=== PATIENT | male | born 1985 | race Asian ===

== ENCOUNTER 2023-09-13 13:40 | Emergency (ER) | payer OTHER, SELFPAY ==
[2023-09-13 14:02] VITALS: BP 159/74; PULSE 74; RESP 16; TEMP 36.6; O2SAT 97; BMI 30.1
--- NOTE | 2023-09-13 14:25 | ED.GENADULT ---
HPI - General Adult General Time Seen by Provider: 14:25 Date Seen: 09/13/23 Chief complaint: Cough Stated complaint: COVID+, whole body numb Time Seen by Provider: 09/13/23 14:25 Source: patient and RN notes reviewed Mode of arrival: ambulatory Limitations: no limitations History of Present Illness HPI narrative: Jovanni is a very pleasant 38-year-old [employer] with history of some ?lung issues[place] who comes to the [facility] for evaluation regarding worsening cough after COVID. Patient had the onset of COVID like symptoms with sore throat cough and fever on September 02. This persisted for a week and he tested positive for COVID on 09/09/2023. He had actually had improvement of his symptoms since that time but his states over the past few days he has had increased coughing and now production. He has a yellow sputum. He notes today he is feeling worse again with some tingling on his body. He occasionally feels short of breath. He has not had any fevers. Patient denies chest pain. No history of DVT in himself her family's and denies any calf tenderness or swelling. Related Data Home Medications Medication Instructions Recorded Confirmed albuterol 90 mcg/actuation aerosol mcg inhalation 09/13/23 inhaler bupropion HCl 75 mg tablet 75 mg PO TID 09/13/23 09/13/23 Allergies Allergy/AdvReac Type Severity Reaction Status Date / Time Sulfa (Sulfonamide Allergy Intermediate Rash Verified 09/13/23 13:58 Antibiotics) Review of Systems Status of ROS: Reports: 10 or more systems reviewed and unremarkable except as noted in History and below Const: Reports: fatigue; Denies: fever or chills Eyes: Denies: change in vision ENMT: Denies: neck pain or throat swelling Cardio: Reports: lightheadedness and shortness of breath with exertion; Denies: chest pain, palpitations, edema or swelling of feet/ankles Resp: Reports: shortness of breath, cough and change in phlegm color; Denies: coughing up blood GI: Denies: abdominal pain, nausea, vomiting or diarrhea Musculo: Denies: neck pain Integ/Breast: Denies: rash Endo: Reports: fatigue Allergy/Immuno: Denies: throat swelling PFSH PFSH Social History Smoking Status: Never smoker Do you use any of these nicotine containing products: None Second hand tobacco smoke exposure: No How often do you have a drink containing alcohol: never How often do you have six or more drinks on one occasion: Never AUDIT-C Alcohol total score: 0 Non-prescribed substance use: denies use service: Yes Exam Narrative: Exam Narrative: Jovanni is alert and oriented. Very pleasant gentleman in no acute distress. External ears eyes nose clear. Oral cavity with moist mucous membranes. Neck is supple without lymphadenopathy. Heart with regular rate and rhythm without additional heart sounds or murmurs. Lungs are with decreased breath sounds in the bases. I do think there are some crackles on the left lower lung field. Abdomen is soft nontender. Calf t without tenderness negative Homans sign and no edema. Const: Vital Signs, click to edit/add: Vital Signs - 24 hr 09/13/23 14:02 Temperature 97.9 F Pulse Rate [Pulse Oximeter] 74 Respiratory Rate 16 Blood Pressure [Ri ght Upper Arm] 159/74 H Pulse Oximetry 97 Oxygen Delivery Me thod Room Air Documenting provider has reviewed patient's vital signs: yes Course Course ED Course: Initially I did discuss with Jovanni and his possibility of a D-dimer as well as laboratory values but then note that he has a normal pulse normal oxygen level and no history of DVT or risk factors. Therefore will get a chest x-ray at this time. Reevaluation(s) Reevaluation #1: Chest x-ray by my read shows increased lung markings in the periphery. Vital Signs Vital signs: Initial Vital Signs Temperature 97.9 F 09/13/23 14:02 Temperature Source Temporal Artery Scan 09/13/23 14:02 Pulse Rate 74 09/13/23 14:02 Pulse Rhythm Regular 09/13/23 14:02 Respiratory Rate 16 09/13/23 14:02 Blood Pressure 159/74 H 09/13/23 14:02 Blood Pressure Mean 102 09/13/23 14:02 Blood Pressure Position Sitting 09/13/23 14:02 Pulse Oximetry 97 09/13/23 14:02 Oxygen Delivery Method Room Air 09/13/23 14:02 Vital Signs Temperature 97.9 F 09/13/23 14:02 Pulse Rate 74 09/13/23 14:02 Respiratory Rate 16 09/13/23 14:02 Blood Pressure 159/74 H 09/13/23 14:02 Pulse Oximetry 97 09/13/23 14:02 Oxygen Delivery Method Room Air 09/13/23 14:02 Temperature 97.9 F 09/13/23 14:02 Pulse Rate 74 09/13/23 14:02 Respiratory Rate 16 09/13/23 14:02 Blood Pressure 159/74 H 09/13/23 14:02 Pulse Oximetry 97 09/13/23 14:02 Oxygen Delivery Method Room Air 09/13/23 14:02 Medical Decision Making MDM Narrative Medical decision making narrative: 1. Bronchitis secondary to [id number] has had 12 or 13 days of ongoing cough initially improving and now worsening. He is feeling worse today. Fortunately his O2 sats and pulse are within normal limits. Will treat with Zithromax 500 mg today followed by 250 mg daily for 4 days. Patient should push fluids. Ibuprofen or Tylenol may be used for discomfort. We did talk about worsening symptoms and should he make him short of breath, have vomiting, have development of chest pain I would like him to return to the emergency room for further evaluation. I did not do steroids as patient was not wheezing today. 2. Disposition-home at this time. Return for worsening symptoms. Medical Records Medical records reviewed: Yes I reviewed the patient's medical records Medical records narrative: No records available. Imaging Data Chest x-ray: Attestation: I have reviewed the pertinent imaging results. My impression: By my read increased lung markings in the periphery. Radiologist's impression: Cardiovascular and mediastinum: Heart size and vasculature are normal in caliber and appearance. Mediastinum is within normal limits. Lungs and pleural space: Lungs are clear. No sign of infiltrate or mass. No sign of pleural effusion. No pneumothorax. Bones and soft tissues: No significant findings. IMPRESSION: No plain film evidence for viral pneumonia. Discharge Plan Discharge Clinical Impression: Bronchitis due to 2019 novel coronavirus Patient Disposition: Home, Self-Care Condition: Unchanged Additional Instructions: Zithromax also known as a Z-Cj is available for you in instymeds. Ibuprofen or Tylenol as needed for discomfort. Return to the ER for worsening symptoms. Prescriptions: No Action albuterol 90 mcg/actuation aerosol inhalation bupropion HCl 75 mg tablet 75 mg PO TID Rx Instructions: administer 6 hours apart Follow Up/Referrals: Provider,Not a Local [Primary Care Provider] - Stand Alone Forms: [employer] Info Instructions
--- NOTE | 2023-09-13 14:36 | CRLHL7_ITS ---
For Patients: As a result of the Cures Act, medical imaging exams and procedure reports are released immediately into your electronic medical record. You may view this report before your referring provider. If you have questions, please contact your health care provider. INDICATION: Day 12 COVID, worsening cough INDICATION: Cough. COVID-19. TECHNIQUE: Chest 1 view. COMPARISON: None FINDINGS: Cardiovascular and mediastinum: Heart size and vasculature are normal in caliber and appearance. Mediastinum is within normal limits. Lungs and pleural space: Lungs are clear. No sign of infiltrate or mass. No sign of pleural effusion. No pneumothorax. Bones and soft tissues: No significant findings. IMPRESSION: No plain film evidence for viral pneumonia. Dictated by Kevin Paris MD @ 09/13/2023 3:14:07 PM Dictated by: Kevin Paris MD @ 09/13/2023 15:14:16 (Electronically Signed)
== END 2023-09-13 15:51 | disposition home or self-care (01) ==
PROVIDERS: Emergency Provider Family Medicine
DX: J40 Bronchitis, not specified as acute or chronic (principal); U07.1 COVID-19
CPT/HCPCS: 71045; 99283